=== PATIENT | female | born 1980 | race Caucasian/White ===

== ENCOUNTER 2017-05-25 11:04 | Emergency (ER) | payer OTHER ==
[2017-05-25 12:37] LABS: BILIRUBIN,URINE NEGATIVE (NEGATIVE)
[2017-05-25 12:41] LABS: UA w/ MICROSCOPIC CHARGE YES
[2017-05-25 12:44] LABS: HCG UR QUAL NEGATIVE
[2017-05-25 12:54] LABS: UR CULTURE IF IND NOT INDICATED; WBC,URINE 0-3 /HPF (0-5)
[2017-05-25] MEDS ORDERED: ONDANSETRON 4 MG/2 ML VIAL IVP STA (13:03)
[2017-05-25] MEDS ORDERED: KETOROLAC 60 MG/2 ML VIAL IVP STA (13:03)
[2017-05-25] MEDS ORDERED: methylPREDNISolone SUCCINATE 125 MG/2 ML VIAL IVP STA (13:06)
[2017-05-25] MEDS ORDERED: HYDROmorphone 1 MG/ML SYRINGE IM STA (13:16)
[2017-05-25] MEDS ORDERED: KETOROLAC 30 MG/ML VIAL ONE (13:22)
[2017-05-25] MEDS ORDERED: HYDROmorphone 1 MG/ML SYRINGE ONE (13:23)
[2017-05-25] MEDS ORDERED: methylPREDNISolone SUCCINATE 125 MG/2 ML VIAL IVP ONE (13:23)
[2017-05-25] MEDS ORDERED: ONDANSETRON 4 MG/2 ML VIAL ONE (13:23)
[2017-05-25] MEDS ORDERED: HYDROmorphone 1 MG/ML SYRINGE IVP STA (13:31)
--- NOTE | 2017-05-25 15:50 | MRI Preliminary Report ---
Exam: MRI Lumbar Spine W/O IMPRESSION: Unremarkable lumbar spine MRI. [facility] SITE ID: [id number]
--- NOTE | 2017-05-25 15:52 | MRI Report ---
EXAM: MRI LUMBAR SPINE WITHOUT CONTRAST EXAM DATE: 05/25/2017 03:41 PM. CLINICAL HISTORY: Low back pain and bilateral sciatica, perineal numbness COMPARISON: None. TECHNIQUE: Multiplanar, multisequence T1-weighted and fluid-sensitive sequences of the lumbar spine f rom T12 to S1 without contrast. Other: None. FINDINGS: Spinal Cord: The conus terminates at L1-L2. No signal abnormality in the visualized spinal cord. Alignment: Normal. No scoliosis or spondylolisthesis. Bone Marrow: Five [id number]-[id number] lumbar vertebral bodies are assumed. No gross fractures or bone les ions. No bone marrow edema. Disk Levels/Facets: T12-L1: Unremarkable. L1-L2: Unremarkable. L2-L3: Unremarkable. L3-L4: Unremarkable. L4-L5: Unremarkable. L5-S1: Unremarkable. Musculature: Normal. No edema or fatty atrophy. Other: The visualized pelvic cavity is unremarkable. IMPRESSION: Unremarkable lumbar spine MRI. Comment: The following findings are so common in adults without low back pain that while we report th eir presence, they must be interpreted with caution and in the context of the clinical situation. (Re juancarlos Jack et al, Spine 2001) Prevalence of findings in patients without low back pain: Disk degeneration (any evidence): 92% Disk desiccation/T2 signal loss: 83% Disk height loss: 56% Disk bulge: 64% Disk protrusion: 32% Annular tear/high intensity zone: 38% [facility] Referring Provider Line: [phone] SITE ID: [id number]
[2017-05-25 16:32] VITALS: BP 146/91
[2017-05-25] MEDS ORDERED: HYDROcod/ACETAM 5/325 MG TABLET PO STA (16:35)
[2017-05-25] MEDS ORDERED: HYDROcod/ACETAM 5/325 MG TABLET ONE (16:48)
--- NOTE | 2017-05-25 17:04 | ED Physician Documentation ---
History of Present Illness - Stated complaint Stated Complaint: BACK PAIN - Chief complaint Chief Complaint: Back Pain - Additonal information Additional information: Patient is a healthy 37-year-old female who presents with a complaint of low back pain she has had it off and on for the past 3 weeks. It is worse with movement and better with rest. She has been trying topical compounded medications, physical therapy, rest and stretches without much improvement in fact she thinks it is getting worse. The pain radiates into both thighs bilaterally. She has hyperesthesia not hypo-in the thighs bilaterally but denies any weakness. She does not have a history of any recurrent Low back pain problems. Review of systems: For pertinent positive and negative questions for the review of systems please see history of present illness. Otherwise all other systems have been reviewed and are negative. Dragon disclaimer: Parts of this medical record were created using voice recognition technology. Because of the inherent limitations of this system occasional same sounding word substitutions do occur and persist despite proofreading. Please read the document for context. 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 HEENT: Tonsil/Adenoidectomy - Present Medications Home Medications: Ambulatory Orders Medication Instructions Recorded Confirmed Ibuprofen 600 mg PO TID PRN #14 tablet 05/25/17 Prednisone 40 mg PO DAILY #8 tablet 05/25/17 Sertraline [Zoloft] 150 mg PO DAILY 05/25/17 05/25/17 Tramadol HCl 50 mg PO Q8HR PRN #20 tablet 05/25/17 - Allergies Allergies/Adverse Reactions: Allergies Allergy/AdvReac Type Severity Reaction Status Date / Time codeine Allergy Severe Anaphylaxis Verified 05/25/17 11:50 Iodinated Contrast- Oral and Allergy Mild Anxiety Verified 05/25/17 11:50 IV Dye [Iodinated Contrast Media - IV Dye] - Social History Does the pt smoke?: No Smoking Status: Never smoker Does the pt drink ETOH?: No Does the pt have substance abuse?: Yes Substance Use and Type: Marijuana - Immunizations Immunizations are current?: Yes - POLST Patient has POLST: No PD ED PE NORMAL - General General: Alert and oriented X 3, Other - HEENT HEENT: Atraumatic (Mild distress secondary pain) - Cardiac Cardiac: RRR, No murmur, No gallop, No rub - Respiratory Respiratory: No respiratory distress, Clear bilaterally - Abdomen Abdomen: Normal bowel sounds, Non tender - Derm Derm: Normal color, No rash - Extremities Extremities: No deformity, Normal ROM s pain - Neuro Neuro: Alert and oriented X 3, No motor deficit Results - Vitals Vitals: Vital Signs - 24 hr 05/25/17 05/25/17 05/25/17 11:14 14:30 16:32 Temperature 36.4 C L Heart Rate 70 64 81 Respiratory 18 14 16 Rate Blood Pressure 129/86 H 149/82 H 146/91 H O2 Saturation 98 96 96 Oxygen O2 Source Room air - Labs Labs: Laboratory Tests 05/25/17 05/25/17 12:21 12:25 Urine Color YELLOW Urine Clarity CLEAR Urine pH 6.0 Ur Specific [place] 1.020 1.020 Urine Protein NEGATIVE Urine Glucose (UA) NEGATIVE Urine Ketones NEGATIVE Urine Occult Blood SMALL H Urine Nitrite NEGATIVE Urine Bilirubin NEGATIVE Urine Urobilinogen 0.2 (NORMAL) Ur Leukocyte Esterase NEGATIVE Urine RBC 0-5 Urine WBC 0-3 Ur Squamous Epith Cells RARE Squamous Urine Bacteria Rare Ur Microscopic Review INDICATED Urine Culture Comments NOT INDICATED Urine HCG, Qual NEGATIVE PD MEDICAL DECISION MAKING - ED course ED course: Pleasant woman who appears very uncomfortable who is had bilateral sciatica for approximately 3 weeks. Neuro examination fails to show any weakness or loss of reflexes in the legs. Her strength is perfect. I was concerned given the bilaterality and the duration of symptoms. She thought that she probablyMost likely had a fractured disc and was concerned about spinal cord compression. MRI was done and really did not show any significant abnormality she is treated with IV narcotics, corticosteroids, and anti-inflammatories and now looks and feels a little better. We will maintain her on the same treatment and have her follow-up with her doctor. I am recommending continued physical therapy rest, stretches, and a compounded topical medications that were initiated previously. Disposition: To home Clinical impression: 1. Bilateral sciatica Departure - Departure Disposition: 01 Home, Self Care Clinical Impression: Sciatica Qualifiers: Laterality: bilateral Qualified Code(s): M54.31 - Sciatica, right side Condition: Good Instructions: ED Sprain Strain Lumbar, ED Sciatica Follow-Up: Caio Mendoza ARNP [Primary Care Provider] - Prescriptions: Tramadol HCl 50 mg PO Q8HR PRN #20 tablet PRN Reason: Pain Ibuprofen 600 mg PO TID PRN #14 tablet PRN Reason: Pain Prednisone 40 mg PO DAILY #8 tablet Forms: Activity restrictions
== END 2017-05-25 16:55 | disposition home or self-care (01) ==
LOC: ED 11:04
DX: M54.32 Sciatica, left side (principal); M54.31 Sciatica, right side; G89.29 Other chronic pain
CPT/HCPCS: 72148; 81001; 81025; 96374; 96375; 99283; 99284; A9270; J1170; 81003; 87086

== ENCOUNTER 2018-09-24 14:46 | Outpatient (CLI) | payer OTHER ==
[2018-09-24 17:47] LABS: BASOPHILS % (AUTO) 0.5 %; EOSINOPHILS # (AUTO) 0.1 10^3/uL (0.0-0.7); EOSINOPHILS % (AUTO) 1.2 %; HGB - HEMOGLOBIN 13.2 g/dL (12.0-16.0); LYMPHOCYTES # (AUTO) 2.2 10^3/uL (1.5-3.5); MEAN CORPUSCULAR HEMOGLOBIN 26.9 pg (27.0-31.0); MEAN CORPUSCULAR HGB CONC 32.8 g/dL (32.0-36.0); MEAN CORPUSCULAR VOLUME 81.8 fL (81.0-99.0); MEAN PLATELET VOLUME 7.6 fL (7.9-10.8); MONOCYTES # (AUTO) 0.6 10^3/uL (0.0-1.0); NEUTROPHILS # (AUTO) 4.2 10^3/uL (1.5-6.6); NEUTROPHILS % (AUTO) 58.3 %; PLT - PLATELET COUNT 221 10^3/uL (130-450); RED BLOOD COUNT 4.93 10^6/uL (4.20-5.40); WHITE BLOOD COUNT 7.2 x10^3/uL (4.8-10.8)
[2018-09-24 18:29] LABS: ALBUMIN 4.2 g/dL (3.2-5.5); ALBUMIN/GLOBULIN RATIO 1.2 (1.0-2.2); BILIRUBIN,TOTAL 0.4 mg/dL (0.2-1.0); CREATININE 1.3 mg/dL (0.4-1.0); TOTAL PROTEIN 7.7 g/dL (6.7-8.2)
[2018-09-24 18:46] LABS: THYROID STIMULATING HORMONE 1.75 uIU/mL (0.34-5.60)
[2018-09-24 18:48] LABS: FREE T4 (FREE THYROXINE) 0.71 ng/dL (0.58-1.64)
== END 2018-09-24 14:47 | disposition home or self-care (01) ==
LOC: LAB.F 14:46
PROVIDERS: ATTEND Nurse Practitioner Family
DX: E55.9 Vitamin D deficiency, unspecified (principal); E78.5 Hyperlipidemia, unspecified; Z79.899 Other long term (current) drug therapy
CPT/HCPCS: 36415; 80053; 82306; 84439; 84443; 84481; 85025

== ENCOUNTER 2020-11-21 08:00 | Outpatient (CLI) | payer OTHER ==
[2020-11-21 14:35] LABS: BASOPHILS % (AUTO) 0.6 %; EOSINOPHILS # (AUTO) 0.1 10^3/uL (0.0-0.7); EOSINOPHILS % (AUTO) 1.5 %; HGB - HEMOGLOBIN 12.2 g/dL (12.0-16.0); LYMPHOCYTES # (AUTO) 1.7 10^3/uL (1.5-3.5); LYMPHOCYTES % (AUTO) 35.4 %; MEAN CORPUSCULAR HEMOGLOBIN 26.8 pg (27.0-31.0); MEAN CORPUSCULAR HGB CONC 30.6 g/dL (32.0-36.0); MEAN CORPUSCULAR VOLUME 87.7 fL (81.0-99.0); MEAN PLATELET VOLUME 9.9 fL (7.9-10.8); MONOCYTES # (AUTO) 0.5 10^3/uL (0.0-1.0); MONOCYTES % (AUTO) 10.9 %; NEUTROPHILS # (AUTO) 2.5 10^3/uL (1.5-6.6); NEUTROPHILS % (AUTO) 51.4 %; PLT - PLATELET COUNT 218 10^3/uL (130-450); RED BLOOD COUNT 4.55 10^6/uL (4.20-5.40); RED CELL DISTRIBUTION WIDTH 12.9 % (12.0-15.0); WHITE BLOOD COUNT 4.8 x10^3/uL (4.8-10.8)
[2020-11-21 16:26] LABS: ALBUMIN 4.3 g/dL (3.2-5.5); ALBUMIN/GLOBULIN RATIO 1.5 (1.0-2.2); ALKALINE PHOSPHATASE 51 IU/L (42-121); ALT ALANINE AMINOTRANSFERASE 14 IU/L (10-60); AST ASPARTATE AMINOTRANSFERASE 19 IU/L (10-42); BILIRUBIN,TOTAL 1.1 mg/dL (0.2-1.0); BUN - BLOOD UREA NITROGEN 13 mg/dL (6-20); CARBON DIOXIDE - CO2 26 mmol/L (21-32); CHLORIDE 103 mmol/L (101-111); CHOL/HDL RATIO 2.3 (<4.4); CHOLESTEROL 179 mg/dL; GLUCOSE 97 mg/dL (70-100); HDL CHOLESTEROL 79 mg/dL; LDL CHOLESTEROL,CALCULATED 83 mg/dL; LDL/HDL RATIO 1.1 (<4.4); TOTAL PROTEIN 7.2 g/dL (6.7-8.2); VLDL CHOLESTEROL 17 mg/dL
== END 2020-11-21 23:59 | disposition home or self-care (01) ==
LOC: LAB.S 08:00
PROVIDERS: ATTEND Nurse Practitioner Family
DX: Z00.00 Encounter for general adult medical examination without abnormal findings (principal); E55.9 Vitamin D deficiency, unspecified; E78.5 Hyperlipidemia, unspecified
CPT/HCPCS: 36415; 80053; 80061; 82306; 82728; 83721; 85025

== ENCOUNTER 2024-03-17 09:21 | Outpatient (CLI) | payer OTHER ==
[2024-03-17 12:38] LABS: BASOPHILS % (AUTO) 0.6 %; EOSINOPHILS # (AUTO) 0.1 10^3/uL (0.0-0.7); EOSINOPHILS % (AUTO) 1.8 %; HCT - HEMATOCRIT 38.5 % (37.0-47.0); HGB - HEMOGLOBIN 11.6 g/dL (12.0-16.0); LYMPHOCYTES # (AUTO) 1.9 10^3/uL (1.5-3.5); LYMPHOCYTES % (AUTO) 27.8 %; MEAN CORPUSCULAR HEMOGLOBIN 24.1 pg (27.0-31.0); MEAN CORPUSCULAR HGB CONC 30.1 g/dL (32.0-36.0); MEAN CORPUSCULAR VOLUME 79.9 fL (81.0-99.0); MEAN PLATELET VOLUME 9.5 fL (7.9-10.8); MONOCYTES # (AUTO) 0.7 10^3/uL (0.0-1.0); MONOCYTES % (AUTO) 10.4 %; NEUTROPHILS % (AUTO) 59.1 %; PLT - PLATELET COUNT 285 10^3/uL (130-450); RED BLOOD COUNT 4.82 10^6/uL (4.20-5.40); RED CELL DISTRIBUTION WIDTH 15.1 % (12.0-15.0); WHITE BLOOD COUNT 6.7 x10^3/uL (4.8-10.8)
[2024-03-17 12:48] LABS: ESTIMATED AVERAGE GLUCOSE 114 mg/dL (70-100); HEMOGLOBIN A1c% 5.6 % (4.27-6.07)
[2024-03-17 13:01] LABS: ALBUMIN 4.3 g/dL (3.2-5.5); ALBUMIN/GLOBULIN RATIO 1.4 (1.0-2.2); ALKALINE PHOSPHATASE 67 IU/L (42-121); ALT ALANINE AMINOTRANSFERASE 13 IU/L (10-60); AST ASPARTATE AMINOTRANSFERASE 18 IU/L (10-42); BILIRUBIN,TOTAL 0.4 mg/dL (0.2-1.0); BUN - BLOOD UREA NITROGEN 15 mg/dL (6-20); CALCIUM 9.8 mg/dL (8.5-10.3); CARBON DIOXIDE - CO2 28 mmol/L (21-32); CHLORIDE 104 mmol/L (101-111); CHOL/HDL RATIO 2.1 (<4.4); CHOLESTEROL 162 mg/dL; GFR - MDRD 60 (>89); GLUCOSE 93 mg/dL (74-104); HDL CHOLESTEROL 78 mg/dL; LDL CHOLESTEROL,CALCULATED 57 mg/dL; LDL/HDL RATIO 0.7 (<4.4); POTASSIUM 3.9 mmol/L (3.5-4.5); SODIUM 137 mmol/L (135-145); TOTAL PROTEIN 7.3 g/dL (6.4-8.9); TRIGLYCERIDES 133 mg/dL (48-352); VLDL CHOLESTEROL 27 mg/dL
[2024-03-17 13:02] LABS: THYROID STIMULATING HORMONE 1.56 uIU/mL (0.34-5.60)
== END 2024-03-17 09:22 | disposition home or self-care (01) ==
LOC: LAB.N 09:21
PROVIDERS: ATTEND Physician Assistant Medical
DX: Z13.9 Encounter for screening, unspecified (principal); R53.83 Other fatigue
CPT/HCPCS: 36415; 80053; 80061; 83036; 83721; 84443; 85025

== ENCOUNTER 2024-03-25 14:02 | Outpatient (CLI) | payer OTHER ==
--- NOTE | 2024-03-25 15:10 | XRAY Report ---
PROCEDURE: Chest 2V INDICATIONS: BRONCHITIS TECHNIQUE: 2 views of the chest were acquired. COMPARISON: None. FINDINGS: Surgical changes and devices: None. Lungs and pleura: There is mild bronchial wall thickening compatible with bronchitis. No focal conso lidation. No pleural effusions or pneumothorax. Mediastinum: Mediastinal contours appear normal. Heart size is normal. Bones and chest wall: No suspicious bony lesions. Overlying soft tissues appear unremarkable. IMPRESSION: Mild bronchial wall thickening compatible with bronchitis. Reviewed by: Leni Claros MD on 03/25/2024 3:08 PM PDT Approved by: Leni Claros MD on 03/25/2024 3:08 PM PDT Station ID: [id number]
== END 2024-03-25 23:59 | disposition home or self-care (01) ==
LOC: DI.S 14:02
PROVIDERS: ATTEND Emergency Medicine
DX: J20.9 Acute bronchitis, unspecified (principal)

== ENCOUNTER 2024-07-04 14:22 | Outpatient (CLI) | payer OTHER ==
--- NOTE | 2024-07-05 07:44 | Mammography Report ---
BILATERAL FIRST EVER DIGITAL SCREENING MAMMOGRAM 3D/2D WITH EXAGGERATED CC: 07/04/2024 CLINICAL: Baseline exam. Routine screening. Family history of breast cancer. No prior exams were available for comparison. Both breasts are heterogeneously dense, which may obscure small masses (category c / 51-75% glandular tissue). No significant masses, calcifications, or other findings are seen in either breast. IMPRESSION: NEGATIVE There is no mammographic evidence of malignancy. A 1 year screening mammogram is recommended. Based on the Tyrer Cuzick model (a risk assessment model) the patient's lifetime risk is 15.1% and he r 10 year risk is 2.8%. According to the ACR, ACS, and NCCN guidelines, an annual breast MRI exam daniel ng with mammogram is recommended if the patient's lifetime risk is 20% or greater. This exam was interpreted at Station ID: [id number]. NOTE: For mammograms, a report in lay terms will be sent to the patient. Approximately 15% of breast malignancies will not be visualized mammographically. In the management of a palpable breast mass, a negative mammogram must not discourage biopsy of a clinically suspicious lesion. Electronically Signed By: Laron lemos/[email or web address]:07/04/2024 15:54:05 letter sent: No_Letter ACR BI-RADS Category 1: Negative 3341F PARENCHYMAL PATTERN: (D) - The breast(s) demonstrate(s) heterogeneously dense fibroglandular jhonatan clark. BI-RADS CATEGORY: (1) - 1 RECOMMENDATION: (ANNUAL) - Recommend routine annual screening mammography. [id number] 1 year screening LATERALITY: (B)
== END 2024-07-04 14:23 | disposition home or self-care (01) ==
LOC: DI.S 14:22
PROVIDERS: ATTEND Physician Assistant Medical
DX: Z12.31 Encounter for screening mammogram for malignant neoplasm of breast (principal)